=== PATIENT | female | born 1970 | race Caucasian/White ===

== ENCOUNTER → 2023-08-03 11:02 | Outpatient (REF) | payer OTHER, SELFPAY ==
[2023-08-03 12:05] LABS: % Basophils 0.6 % (0-2); % Eosinophils 1.3 % (0-6); % Immature Granulocytes 0.2 % (0-0.5); % Lymphocytes 31.7 % (20.5-51.1); % Monocytes 7.5 % (1.7-9.3); % Neutrophils 58.7 % (42.2-75.2); Absolute Basophils 0.1 10^3/uL (0-0.2); Absolute Eosinophils 0.2 10^3/uL (0-0.7); Absolute Lymphocytes 3.9 10^3/uL (1.2-3.4); Absolute Monocytes 0.9 10^3/uL (0.1-0.6); Absolute Neutrophils 7.2 10^3/uL (1.4-6.5); Hematocrit 42.7 % (37.0-47.0); Mean Corp Hgb Conc. 32.8 g/dL (33.0-37.0); Mean Corpuscular Hgb 28.9 pg (27.0-31.0); Mean Platelet Volume 10.4 fL (7.4-10.4); Nucleated Red Blood Cells % 0 %; Platelet Count 370 10^3/uL (130-400); Red Blood Cell Count 4.85 10^6/uL (4.20-5.40); White Blood Cell Count 12.3 10^3/uL (4.8-10.8)
[2023-08-03 12:40] LABS: Blood Urea Nitrogen 12 mg/dl (7-17); Calcium 9.7 mg/dl (8.4-10.2); Carbon Dioxide 27 mmol/L (22-30); Chloride 103 mmol/L (98-107); Glucose 94 mg/dl (70-99); Potassium 4.2 mmol/L (3.5-5.1); Sodium 139 mmol/L (135-145); eGFR > 60.00
== END ==
LOC: REG 11:02
PROVIDERS: ATTENDING PHYSICIAN Surgery; FAMILY PHYSICIAN Internal Medicine
DX: K57.32 Diverticulitis of large intestine without perforation or abscess without bleeding (principal)
CPT/HCPCS: 36415; 80048; 85025

== ENCOUNTER → 2023-08-18 09:54 | Outpatient (REF) | payer OTHER, SELFPAY | LOC: HWRAD 09:54 | PROVIDERS: ATTENDING PHYSICIAN Surgery; FAMILY PHYSICIAN Internal Medicine | DX: K57.32 Diverticulitis of large intestine without perforation or abscess without bleeding (principal) | CPT/HCPCS: 74177; Q9967 ==

== ENCOUNTER 2024-06-05 08:47 | Emergency (ER) | payer OTHER, SELFPAY ==
[2024-06-05 08:48] VITALS: BP 153/95
[2024-06-05 09:37] VITALS: BP 143/95
[2024-06-05 09:50] VITALS: BMI 34.4
[2024-06-05 10:00] VITALS: BP 118/85
[2024-06-05] MEDS: NSS 1000 IV (10:00)
[2024-06-05] MEDS: ZOFRAN 4 MG IV (10:00)
[2024-06-05 10:06] LABS: % Basophils 0.5 % (0-2); % Eosinophils 0.8 % (0-6); % Immature Granulocytes 0.3 % (0-0.5); % Lymphocytes 17.2 % (20.5-51.1); % Monocytes 6.6 % (1.7-9.3); % Neutrophils 74.6 % (42.2-75.2); Absolute Basophils 0.1 10^3/uL (0-0.2); Absolute Eosinophils 0.1 10^3/uL (0-0.7); Absolute Immature Granulocytes 0.1 10^3/uL (0-0.05); Absolute Lymphocytes 2.6 10^3/uL (1.2-3.4); Absolute Neutrophils 11.3 10^3/uL (1.4-6.5); Hematocrit 42.9 % (37.0-47.0); Hemoglobin 14.2 g/dL (12.0-16.0); Mean Corp Hgb Conc. 33.1 g/dL (33.0-37.0); Mean Corpuscular Hgb 28.5 pg (27.0-31.0); Mean Platelet Volume 9.5 fL (7.4-10.4); Nucleated Red Blood Cells % 0 %; Platelet Count 337 10^3/uL (130-400); Red Blood Cell Count 4.99 10^6/uL (4.20-5.40); Red Cell Dist. Width 13.1 % (11.5-14.5); White Blood Cell Count 15.1 10^3/uL (4.8-10.8)
--- NOTE | 2024-06-05 10:14 | ED.GENMED ---
History of Present Illness
General
Chief Complaint: Abdominal Pain
Source: patient
Exam Limitations: none
Time Seen by Provider: 06/05/24 09:16
Nursing documentation reviewed up to this point in time: agreed with
History of Present Illness
History of Present Illness:
53 y/o F with h/o HTN, HLD, factor V leiden on eliquis
diverticulitis
hemorrhoids
1.5 weeks lower abd pain
Phy Exam
Physical Exam
Physical Exam:
GENERAL: Alert , in no apparent distress
EYE: pupils equal and reactive
NECK: Supple
ENT: o/p clr, mmm.
CARDIAC: Regular rate and rhythm .
LUNGS: Clear breath sounds bilaterally, no acute respiratory distress, no wheezes/rales/rhonchi
ABDOMEN: Soft, moderate lower abdominal tenderness, no rebound, no r/g, no cvat, normal bowel sounds
Rectum, large sacral external nonbleeding nonthrombosed hemorrhoids
Trace blood in the vault
NEUROLOGICAL: Alert and oriented, no focal neuro deficits
SKIN: Warm and dry, skin intact.
MUSCULOSKELETAL: No edema, well perfused. neg gema's sign
PSYCH: Normal and appropriate interaction.
Course
Orders/Labs/Results
Orders:
Orders
06/05/24 09:45
CT Abd/Pel (IV only)-DH only Urgent
Comment: factor v leiden eliquis
Reason For Exam: lower abd pain, rectal bleeding, h/o divertic;
0.9% Sodium Chloride 1000 ml [Nss] 1,000 ml IV BOLUS
Ondansetron Injectable [Zofran] 4 mg IV NOW STA
06/05/24 09:51
Complete Blood Count/With Diff Urgent
Comprehensive Metabolic Panel Urgent
Lactic Acid Urgent
Lipase Urgent
06/05/24 10:34
Acetaminophen [Tylenol] 975 mg PO NOW STA
06/05/24 10:39
Urinalysis Reflex To Culture Urgent
Date Specimen was Collected: 06/05/24
Time Specimen was Collected: 09:50
Urine Microscopic Reflex Cult Urgent
Urine Culture Urgent
JORGE Source: U
Specimen Description:
Date Specimen was Collected: 06/05/24
Time Specimen was Collected: 09:50
06/05/24 12:27
Amoxicillin 875 mg/Clav 125 mg [Augmentin 875 mg/125 mg] 1 tablet PO NOW STA
Abnormal Lab Results
06/05/24 06/05/24
09:51 10:39
WBC 15.1 H 10^3/uL
(4.8-10.8)
Abs Immat Gran (auto) 0.1 H 10^3/uL
(0-0.05)
Absolute Neuts (auto) 11.3 H 10^3/uL
(1.4-6.5)
Absolute Monos (auto) 1.0 H 10^3/uL
(0.1-0.6)
Lymphocytes % 17.2 L %
(20.5-51.1)
Glucose 101 H mg/dl
(70-99)
AST 43 H U/L
(14-36)
ALT 80 H U/L
(0-35)
Ur Occult Blood Reflex 1+ A
(Negative)
Leukocyte Esterase Rfl 1+ A
(Negative)
Urine Bacteria (Reflex) Moderate A
(Negative)
06/05/24 09:51
06/05/24 09:51
Vital Signs
Initial and Last Documented VS:
Initial Vital Signs
Temp Pulse Resp BP Pulse Ox
37.2 C 110 20 153/95 99
06/05/24 08:48 06/05/24 08:48 06/05/24 08:48 06/05/24 08:48 06/05/24 08:48
Last Documented Vital Signs
Temp Pulse Resp BP Pulse Ox
37.2 C 89 18 118/80 97
06/05/24 08:48 06/05/24 13:23 06/05/24 13:23 06/05/24 13:23 06/05/24 13:23
MDM/Problems Addressed
Differential Diagnosis Includes:
divertic, abscess, UTI
MDM/Problems Addressed:
53 y/o F with h/o divertciulitis
factor v leiden on eliquis
loewr abd pain 1.5 weeks
low grade temp
nausea
mild diarrhea
occ rectal bleeding with bm due to large hemorrhoids
hasn't bee seen for the heomrrhoids in a while
tender lower abdomen
no peritonitis
wbc 15
afebrile here
urine probably contaminated from inflammation from CT evidence diverticultis sigmoid
no perf
offered obs admission vs dc with abx
she would like to go home
augmentin worked previosly
clears
pain meds
stool softeners
return precautions
colorectal f/u
*Critical Care Note
Total Time (30-74mins, 75-104mins- exclusive of procedures): Not Applicable
ED Attending Note
-
Portions of this chart may have been created with voice recognition software.� Occasional wrong word or��sound alike� substitutions may have occurred due to the inherent limitations of voice recognition software.
Discharge Plan
Departure
Patient Disposition: Home (Routine Discharge)
Date of Disposition: 06/05/24
Time of Disposition: 12:27
Patient with high blood pressure during this ER visit?: No
Condition: Fair
Covid-19: Not Applicable
Discharge Problem:
Diverticulitis
Instructions: Clear Liquid Diet, Diverticulitis (DC)
Prescriptions:
New
amoxicillin-pot clavulanate 875-125 mg tablet
1 tab PO BID Qty: 20 0RF
oxycodone 5 mg tablet
5 mg PO BID PRN (Reason: Pain) Qty: 5 0RF
ondansetron 4 mg tablet,disintegrating
4 mg PO Q8H PRN (Reason: nausea and vomiting) 2 Days Qty: 5 0RF
fluconazole [Diflucan] 100 mg tablet
100 mg PO DAILY PRN (Reason: vaginal itching) Qty: 1 0RF
No Action
amlodipine 5 mg Tablet
5 mg PO HS
Eliquis 2.5 mg Tablet
2.5 mg PO BID
multivitamin
2 gummy PO DAILYPRN PRN (Reason: supplement)
omeprazole
1 tab PO DAILYPRN PRN (Reason: heartburn)
Patient Comments:
03/23/2023, patient gets this medication over the counter at [facility]. Patient unsure of strength.
hydrocortisone [Proctocort] 1 % cream
1 applic topical TID Qty: 28.35 0RF
Referrals:
Sergio Romero MD [Family Provider] -
Earl Hemphill MD [Active] - Follow up in 5-7 days
Activity Restrictions/Additional Instructions:
YOUR CAT SCAN SHOWS SIGMOID DIVERTICULITIS
YOU SHOULD EAT A CLEAR LIQUID DIET FOR 24-48 HOURS TO GIVE YOUR BOWELS REST.
TAKE AUGMENTIN 1 TAB TWICE A DAY FOR 10 DAYS
FOR PAIN TAKE TYLENOL 3 TIMES A DAY
FOR MORE SEVERE PAIN YOU CAN USE OXYCODONE 5 MG EVERY 8 HOURS NEEDED, USE A STOOL SOFTENER WITH THIS MEDICATION
ZOFRNA EVERY 8 HOURS FOR NAUESA NEEDED
WATCH SYMPTOMS CLOSELY.
YOU CAN FOLLOW UP WITH YOUR FAMILY DOCTOR WELL A GI DOCTOR
RETURN FOR: FEVER, WORSE PAIN, VOMITING, INABILITY TO TOLERATE LIQUIDS, BLOODY DIARRHEA OR ANY CONCERNS.
Interventions
Interventions:
*Risk Screen - Suicide Last Done: 06/05/24 08:48
*General Assessment Last Done: 06/05/24 08:48
*Neglect/Abuse Screening Last Done: 06/05/24 08:48
*ED COVID-19 Vaccine History Last Done: 06/05/24 09:51
*Nursing Disposition Last Done: 06/05/24 13:51
EN-Mrtsoj-Whidkhsbbm Assessment Last Done: 06/05/24 10:30
Discharge Date and Time
Discharge Date/Time: 06/05/24 13:51
Print Language: [place]
[2024-06-05 10:21] LABS: ALT (SGPT) 80 U/L (0-35); AST (SGOT) 43 U/L (14-36); Albumin 4.3 g/dl (3.5-5.0); Alkaline Phosphatase 102 U/L (38-126); Blood Urea Nitrogen 13 mg/dl (7-17); Calcium 9.5 mg/dl (8.4-10.2); Carbon Dioxide 26 mmol/L (22-30); Chloride 103 mmol/L (98-107); Estimated Creatinine Clearance 92 ml/min; Glucose 101 mg/dl (70-99); Lipase 58 U/L (23-300); Potassium 4.1 mmol/L (3.5-5.1); Sodium 138 mmol/L (135-145); Total Bilirubin 0.9 mg/dl (0.2-1.3); Total Protein 7.3 g/dl (6.3-8.2); eGFR > 60.00
[2024-06-05] MEDS: TYLENOL 975 MG PO (10:40)
[2024-06-05 10:55] LABS: Urine Albumin Negative (Neg - Trace); Urine Bilirubin Negative (Negative); Urine Character Clear (Clear); Urine Glucose Negative (Negative); Urine Ketone Negative (Negative); Urine Leukocyte 1+ (Negative); Urine Nitrite Negative (Negative); Urine Occult Blood 1+ (Negative); Urine Urobilinogen Negative (Neg - 1+)
[2024-06-05 10:56] LABS: Urine Color Straw
[2024-06-05 11:03] LABS: Urine Amorphous Seen; Urine Bacteria Moderate (Negative); Urine Red Blood Cell 0-2 /HPF (0-2); Urine Squamous Cell 0-2 /LPF (Few)
[2024-06-05 13:23] VITALS: BP 118/80
[2024-06-05] MEDS: AUGMENTIN 875 MG/125 MG 1 TABLET PO (13:24)
== END 2024-06-05 13:51 | disposition home or self-care (01) ==
LOC: EMR 08:47
PROVIDERS: Physician Assistant; EMERGENCY PHYSICIAN Emergency Medicine; FAMILY PHYSICIAN Internal Medicine
DX: K57.32 Diverticulitis of large intestine without perforation or abscess without bleeding (principal); R11.0 Nausea; K64.9 Unspecified hemorrhoids; D68.51 Activated protein C resistance; K62.5 Hemorrhage of anus and rectum; I10 Essential (primary) hypertension; E78.5 Hyperlipidemia, unspecified; K21.9 Gastro-esophageal reflux disease without esophagitis; K76.0 Fatty (change of) liver, not elsewhere classified; Z79.01 Long term (current) use of anticoagulants
CPT/HCPCS: 99284; 96361; 96374; 74177; 80053; 81003; 81015; 83605; 83690; 85025; 87077; 87086; Q9967

== ENCOUNTER 2024-11-24 07:45 | Emergency (ER) | payer OTHER, SELFPAY ==
[2024-11-24 07:48] VITALS: BP 164/92
[2024-11-24 07:55] VITALS: BMI 35.6
[2024-11-24] MEDS: PEN VK 500 MG PO (08:31)
--- NOTE | 2024-11-24 08:55 | ED.GENMED ---
History of Present Illness
General
Chief Complaint: Dental Problem
Source: patient
Time Seen by Provider: 11/24/24 07:55
History of Present Illness
History of Present Illness:
Note:
CHIEF COMPLAINT(S)
Severe pain and swelling on the left side of the face, particularly around the upper molars.
HISTORY OF PRESENT ILLNESS
The patient is a 54-year-old female presenting with severe pain and swelling on the left side of her face. She reports that the pain started as a toothache over the last couple of days, which she initially attributed to her broken and decayed teeth.
Early this morning at around 12:45 AM, she noticed increased swelling on her face. She describes the pain as shooting, extending up towards her eye, and primarily localized at the upper molars, though at times involving the lower molars as well. The
patient reports she has a history of significant dental issues and is awaiting dental extractions and partials. She has experienced similar discomfort due to her dental condition in the past but states that the current episode is more severe.
PAST MEDICAL AND SURIGICAL HISTORY
The patient has a medical history of diabetes, hypertension, hypercholesterolemia, and a known factor V Leiden mutation requiring anticoagulation therapy.
SOCIAL HISTORY
The patient reports smoking but did not specify the type of tobacco product used.
MEDICATIONS
The patient is on anticoagulation therapy for factor V Leiden mutation.
REVIEW OF SYSTEMS
- Dental: Several decayed and cracked teeth, tenderness in the left upper gingiva, and palpable swelling on the left side of the face.
PHYSICAL EXAM
General: Alert, no acute distress.
Skin: Warm, dry.
Head: Normocephalic, atraumatic. Left facial swelling noted. No trismus or stridor
Neck: Supple, trachea midline.
Eye Ears, Nose, Mouth, and Throat: Oral mucosa moist, significant tenderness on left upper gingiva with palpable swelling.
Cardiovascular: Normal peripheral perfusion, no edema.
Respiratory: Respirations are non-labored.
Gastrointestinal: Abdomen nondistended.
Back: Normal range of motion, Normal alignment.
Musculoskeletal: Normal ROM, normal strength.
Neurological: Alert and oriented to person, place, time, and situation, No focal neurological deficit observed.
Psychiatric: Cooperative, appropriate mood & affect.
PROBLEM LIST
- Acute left-sided facial swelling and dental abscess
- Chronic: Diabetes, Hypertension, Hypercholesterolemia, Anticoagulation for Factor V Leiden mutation
PLAN
1. Initiate antibiotic therapy with penicillin to address the dental abscess.
2. Consider attempting drainage of abscess after numbing the area to aid in reducing swelling and pain.
3. Discuss risks associated with the procedure due to anticoagulation therapy.
4. Emphasize the importance of follow-up with dental care for definitive treatment and to prevent recurrence of abscess.
5. Advise scheduling a dental appointment as soon as possible, preferably on Tuesday.
DIFFERENTIAL DIAGNOSIS
The Differential Diagnosis includes, in no particular order and is not limited to:
1. Dental abscess
2. Cellulitis
3. Sinusitis
4. Odontogenic infection
5. Dental fracture
6. Trigeminal neuralgia
7. Gingivitis
8. Periodontitis
9. Osteomyelitis of the jaw
10. Pericoronitis
Disposition:
SUMMARY OF ENCOUNTER
The patient presented to the emergency department with severe pain and swelling on the left side of the face, primarily around the upper molars. The pain was characterized as shooting, extending towards the eye. The swelling had increased since the
onset early in the morning. On examination, there was significant tenderness and swelling of the left upper gingiva. An incision and drainage procedure was attempted, resulting in a small amount of pus drainage. The patient was advised to hold her
morning dose of anticoagulant medication, and penicillin was initiated to address the dental abscess. Warm mouth rinses were recommended, and dental follow-up was emphasized for further management of her condition.
DISPOSITION
Discharge
PLAN
1. Initiate antibiotic therapy with penicillin to address the dental abscess.
2. Patient to hold the morning dose of anticoagulant, possibly apixaban, due to the procedure.
3. Recommend warm mouth rinses to help alleviate discomfort.
4. Emphasize close dental follow-up within 48 hours for definitive management.
5. Advise outpatient follow-up for hypertension.
PATIENT EDUCATION AND COUNSELING
The patient was counseled on the importance of continuing antibiotics as prescribed, using warm mouth rinses to relieve symptoms, and the necessity of follow-up with dental care within 48 hours to prevent recurrence or worsening of the abscess.
FOLLOW-UP INSTRUCTIONS
The patient should schedule a dental appointment within 48 hours for further evaluation and treatment of the dental condition. Follow-up with a primary care provider for hypertension management is also recommended.
MEDICATION RECONCILIATION
- Initiated penicillin therapy for the dental abscess.
- Held morning dose of anticoagulant, likely apixaban (Eliquis), due to the incision and drainage procedure.
MEDICAL DECISION MAKING
-Number and Complexity of Problems Addressed:
Chronic conditions affecting care: Diabetes, Hypertension, Hypercholesterolemia, Anticoagulation for Factor V Leiden mutation. Differential diagnosis considered included dental abscess, cellulitis, sinusitis, odontogenic infection, dental fracture,
trigeminal neuralgia, gingivitis, periodontitis, osteomyelitis of the jaw, and pericoronitis.
-Data:
Category 1
Reviewed the patients medical history and medication list, considering the implications of her anticoagulation therapy in the management of acute dental issues.
My independent interpretation of the physical examination led to the diagnosis of a dental abscess requiring incision and drainage.
-Risk:
Prescription antibiotic (penicillin) was managed, and anticoagulation was temporarily held, indicating the consideration of bleeding risk associated with the procedure.
DIAGNOSIS
- K04.7 Periapical abscess without sinus
- I10 Essential (Primary) Hypertension
Phy Exam
Physical Exam
Physical Exam:
.
Course
Orders/Labs/Results
Orders:
Orders
11/24/24 08:21
Penicillin V Potassium [Pen Vk] 500 mg PO NOW STA
Vital Signs
Initial and Last Documented VS:
Initial Vital Signs
Temp Pulse Resp BP Pulse Ox
98.7 F 103 18 164/92 95
09/06/25 07:48 11/24/24 07:48 11/24/24 07:48 11/24/24 07:48 11/24/24 07:48
Last Documented Vital Signs
Temp Pulse Resp BP Pulse Ox
98.7 F 103 18 164/92 95
11/24/24 07:48 11/24/24 07:48 11/24/24 07:48 11/24/24 07:48 11/24/24 07:48
Procedures
Dentalgia
Dental Block: Infiltration
Bupivacaine 0.5%/Epi Dental cartridge administered?: Yes
Tooth Number: 15
Other
Indication for procedure:: dental abscess
Procedure completed by: Dr Alexander
If no, reason: Emergency procedure
Additional Procedure:
Incision and drainage to L upper molars. minimal bleeding and minimal pus.
*Pulse Oximetry
SaO2: 95
Patient hypoxic: no
*Critical Care Note
Total Time (30-74mins, 75-104mins- exclusive of procedures): Not Applicable
ED Attending Note
-
Portions of this chart may have been created with voice recognition software.� Occasional wrong word or��sound alike� substitutions may have occurred due to the inherent limitations of voice recognition software.
Discharge Plan
Departure
Patient Disposition: Home (Routine Discharge)
Date of Disposition: 11/24/24
Time of Disposition: 08:57
Patient with high blood pressure during this ER visit?: Yes
Discharge Problem:
Dental caries, Abscess, dental
Instructions: Tooth Abscess (DC), Fractured Tooth (DC), Dental Pain (DC), BLOOD PRESSURE
Prescriptions:
New
penicillin V potassium 500 mg tablet
500 mg PO QID Qty: 28 0RF
No Action
amlodipine 5 mg Tablet
5 mg PO HS
Eliquis 2.5 mg Tablet
2.5 mg PO BID
multivitamin
2 gummy PO DAILYPRN PRN (Reason: supplement)
omeprazole
1 tab PO DAILYPRN PRN (Reason: heartburn)
Patient Comments:
03/23/2023, patient gets this medication over the counter at [facility]. Patient unsure of strength.
hydrocortisone [Proctocort] 1 % cream
1 applic topical TID Qty: 28.35 0RF
amoxicillin-pot clavulanate 875-125 mg tablet
1 tab PO BID Qty: 20 0RF
oxycodone 5 mg tablet
5 mg PO BID PRN (Reason: Pain) Qty: 5 0RF
ondansetron 4 mg tablet,disintegrating
4 mg PO Q8H PRN (Reason: nausea and vomiting) 2 Days Qty: 5 0RF
fluconazole [Diflucan] 100 mg tablet
100 mg PO DAILY PRN (Reason: vaginal itching) Qty: 1 0RF
Activity Restrictions/Additional Instructions:
Return immediately for increased swelling, fevers, difficulty swallowing, changes in your voice or any other concerns. Please hold your dose of Eliquis this morning and resume it tonight. Please see your dentist in the next 48 hours for follow-up
and reevaluation as further treatment is necessary.
Interventions
Interventions:
*Risk Screen - Suicide Last Done: 11/24/24 07:49
*General Assessment Last Done: 11/24/24 07:49
*Neglect/Abuse Screening Last Done: 11/24/24 07:50
*ED- Fall Risk Assessment Last Done: 11/24/24 07:55
*ED COVID-19 Vaccine History Last Done: 11/24/24 07:55
Discharge Date and Time
Print Language: [place]
== END 2024-11-24 09:00 | disposition home or self-care (01) ==
LOC: EMR 07:45
PROVIDERS: EMERGENCY PHYSICIAN Emergency Medicine; FAMILY PHYSICIAN Internal Medicine
DX: K02.9 Dental caries, unspecified (principal); K04.7 Periapical abscess without sinus; E11.9 Type 2 diabetes mellitus without complications; I10 Essential (primary) hypertension; E78.00 Pure hypercholesterolemia, unspecified; D68.51 Activated protein C resistance; F17.200 Nicotine dependence, unspecified, uncomplicated
CPT/HCPCS: 99283; 41800